=== PATIENT | female | born 1990 | race Asian ===

== ENCOUNTER 2024-07-06 00:13 | Emergency (ER) | payer BC, SELFPAY ==
[2024-07-06 00:18] VITALS: BP 130/84
--- NOTE | 2024-07-06 01:06 | ED.GENMED ---
History of Present Illness
General
Chief Complaint: Problems
Source: patient
Exam Limitations: none
Time Seen by Provider: 07/06/24 00:56
History of Present Illness
History of Present Illness:
34yo female currently 16 weeks gestation presenting with her for evaluation of vaginal bleeding. Patient noticed some spotting around 11:30pm last night. She then urinated and noticed a blood clot in the toilet so came to the ED. She
denies any abdominal pain/cramping, urinary symptoms, dizziness, syncope. She has had 2 ultrasound so far this which were reportedly normal. She follows with [facility].
Phy Exam
General Physical Exam
General Presentation: well appearing and no apparent distress
General age: appears stated age
General Skin: warm and dry
General Habitus: normal
General Mental: alert
ENT Exam
ENT Exam: normocephalic
Pulmonary Exam
Pulmonary Exam: no respiratory distress
Gastrointestinal Exam
Gastrointestinal Exam: non tender, soft and non distended
Neurological Exam
Neurological Exam: alert
[place] Coma Scale
Eye Opening: Spontaneous
Verbal Response: Oriented
Motor Response: Obeys Commands
GCS Total Score: 15
Skin Exam
Skin Exam: normal color and warm/dry
Psychiatric Exam
Psychiatric Exam: normal mood/affect
Course
Orders/Labs/Results
Orders:
Orders
07/06/24 00:22
US Limited Urgent
Reason For Exam: PASSED CLOT, SPOTTING
EDC?: 12/17/24
07/06/24 00:38
Blood Group&Type Urgent
HCG, Beta Quantitative [Beta HCG Quantitative] Urgent
Is this a screen?: No
07/06/24 00:54
ABO2 Urgent
BBK Wristband Number:
Associate notified that ABO2 has been ordered: [id number]
Date: 07/06/24
Time: 00:45
Clinical Trial Data Manager ID: [id number]
Vital Signs
Initial and Last Documented VS:
Initial Vital Signs
Temp Pulse Resp BP Pulse Ox
97.8 F 90 20 130/84 98
07/06/24 00:18 07/06/24 00:18 07/06/24 00:18 07/06/24 00:18 07/06/24 00:18
Last Documented Vital Signs
Temp Pulse Resp BP Pulse Ox
97.8 F 90 20 130/84 98
07/06/24 00:18 07/06/24 00:18 07/06/24 00:18 07/06/24 00:18 07/06/24 00:18
Information
Weeks gestation: Weeks: (16)
Location: Location: (Intrauterine)
MDM/Problems Addressed
Differential Diagnosis Includes:
34yoF here with vaginal bleeding. Currently 16 weeks . 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 No abdominal pain. Otherwise asymptomatic. VSS. She is well appearing in no distress. Differential diagnosis includes:
threatened , miscarriage, doubt ectopic as she has been told her prior ultrasounds were normal
Initial ED plan: Check quantitative HCG, blood type, and pelvic ultrasound.
*Critical Care Note
Total Time (30-74mins, 75-104mins- exclusive of procedures): Not Applicable
Update Note
Update Note:
HCG 29k. Blood type B+, no indication for Rhogam. Ultrasound shows a live IUP with FHR 146. Cervix is closed. She has an appt with her OBGYN tomorrow. ED return precautions discussed. Patient discharged in stable condition.
ED Attending Note
-
Portions of this chart may have been created with voice recognition software.� Occasional wrong word or��sound alike� substitutions may have occurred due to the inherent limitations of voice recognition software.
Discharge Plan
Departure
Patient Disposition: Home (Routine Discharge)
Date of Disposition: 07/06/24
Time of Disposition: 02:35
Patient with high blood pressure during this ER visit?: No
Discharge Problem:
Vaginal bleeding in
Instructions: Threatened Miscarriage (DC)
Referrals:
NONE,* [Family Provider] -
Activity Restrictions/Additional Instructions:
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 Return to the ER with any worsening symptoms or if you bleed through >2 pads/hour for >2 hours.
Interventions
Interventions:
*Risk Screen - Suicide Last Done: 07/06/24 01:09
*General Assessment Last Done: 07/06/24 01:09
*Neglect/Abuse Screening Last Done: 07/06/24 01:09
*ED- Fall Risk Assessment Last Done: 07/06/24 01:09
*ED COVID-19 Vaccine History Last Done: 07/06/24 01:09
*Nursing Disposition Last Done: 07/06/24 02:39
ED-Female Genitourinary Assessment Last Done: 07/06/24 01:09
Discharge Date and Time
Discharge Date/Time: 07/06/24 02:39
Print Language: ITALIAN
== END 2024-07-06 02:39 | disposition home or self-care (01) ==
LOC: EMR 00:13
PROVIDERS: Student in an Organized Health Care Education/Training Program; EMERGENCY PHYSICIAN Emergency Medicine
DX: O20.9 Hemorrhage in early pregnancy, unspecified (principal); Z3A.16 16 weeks gestation of pregnancy
CPT/HCPCS: 99284; 76815; 84702; 86900; 86901

== ENCOUNTER 2024-12-04 23:11 | Inpatient (IN) | payer BC, SELFPAY ==
[2024-12-04 23:58] VITALS: BP 102/67; BMI 24.9
[2024-12-05] MEDS: LR 1000 IV ×3 (00:13→10:23)
[2024-12-05 00:32] LABS: Hematocrit 35.7 % (37.0-47.0); Hemoglobin 12.2 g/dL (12.0-16.0); Mean Corp Hgb Conc. 34.2 g/dL (33.0-37.0); Mean Corpuscular Volume 86.9 fL (81.0-99.0); Nucleated Red Blood Cells % 0 %; Platelet Count 192 10^3/uL (130-400); Red Cell Dist. Width 14.7 % (11.5-14.5)
[2024-12-05] MEDS: PITOCIN 30 UNITS/NSS 500 ML IV ×2 (02:30→11:38)
[2024-12-05] MEDS: SUBLIMAZE 100 MCG EPIDURAL (09:40)
[2024-12-05] MEDS: FENTANYL/BUPIVACAINE 100 EPIDURAL (09:41)
[2024-12-05] MEDS: COLACE 100 MG PO (20:28)
[2024-12-05] MEDS: TYLENOL 650 MG PO (20:32)
[2024-12-05] MEDS: MOTRIN 600 MG PO (23:58)
[2024-12-06] MEDS: TYLENOL 650 MG PO (02:37)
[2024-12-06 03:17] LABS: Hematocrit 34.2 % (37.0-47.0); Hemoglobin 11.7 g/dL (12.0-16.0)
[2024-12-06] MEDS: PRENATAL PLUS 1 TABLET PO (09:56)
[2024-12-06] MEDS: COLACE 100 MG PO (09:56)
== END 2024-12-06 14:48 | disposition home or self-care (01) | DRG 807 ==
LOC: LDRP 23:11
PROVIDERS: Obstetrics & Gynecology; ADMITTING PHYSICIAN Obstetrics & Gynecology
PROC: 0HQ9XZZ Repair Perineum Skin, External Approach (ICD-10-PCS; 2024-12-05)
PROC: 10E0XZZ Delivery of Products of Conception, External Approach (ICD-10-PCS; 2024-12-05)
DX: O42.02 Full-term premature rupture of membranes, onset of labor within 24 hours of rupture (principal); Z37.0 Single live birth; Z3A.38 38 weeks gestation of pregnancy; O70.0 First degree perineal laceration during delivery; O69.81X0 Labor and delivery complicated by cord around neck, without compression, not applicable or unspecified; O76 Abnormality in fetal heart rate and rhythm complicating labor and delivery
CPT/HCPCS: 36415; 85014; 85018; 85025; 86780; 86850; 86900; 86901